=== PATIENT | male | born 1940 | race Two or more races ===

== ENCOUNTER 2025-03-20 13:49 | Inpatient (IN) | payer MEDICARE, MEDICAID ==
[~2025-03-20] VITALS: Ht 180.3 cm; Wt 88.4 kg
--- NOTE | 2025-03-20 14:29 | DVH ---
EXAM: XY CHEST PORTABLE HISTORY: weakness COMPARISON: None TECHNIQUE: Portable AP view of the chest was performed. FINDINGS: No pneumothorax or pulmonary edema. There is mild right lung base scarring and/or atelectasis with el evated right hemidiaphragm and mild right lung volume loss. The left lung is clear. The heart is not enlarged. There is colonic distention, not fully imaged here. IMPRESSION: 1. Right lung base scarring and/or atelectasis with mild elevation of the right hemidiaphragm and mil d volume loss in the right lung. 2. The left lung is clear.
[2025-03-20 15:19] LABS: Hematocrit 27.4 % (41.0-53.0); Hemoglobin 9.1 g/dL (13.5-17.5); Mean Corpuscular Hemoglobin 30.9 pg (28.0-32.0); Mean Corpuscular Volume 93.0 fL (80.0-100.0); Nucleated Red Blood Cells % 0.0 %
[2025-03-20 15:27] LABS: Sodium 143 mmol/L (136-145)
[2025-03-20 15:28] LABS: Anion Gap 12 (5-15); Carbon Dioxide 23 mmol/L (20-31)
[2025-03-20 15:29] LABS: Calcium 8.9 mg/dL (8.7-10.4); Chloride 108 mmol/L (98-107); Potassium 2.6 mmol/L (3.5-5.1)
[2025-03-20 15:34] LABS: BUN/Creatinine Ratio 9.7 (10.0-20.0); Blood Urea Nitrogen 10 mg/dL (9-23); Glucose 100 mg/dL (74-106)
--- NOTE | 2025-03-20 15:56 | DVH ---
EXAM: CT CT AB PEL WO CON-NO ORAL OR IV INDICATION: Back pain TECHNIQUE: Volumetric multidetector CT images of the abdomen and pelvis were obtained without contras t. All CT scans at this facility use dose modulation, iterative reconstruction, and/or weight based d osing when appropriate to reduce radiation dose to as low as reasonably achievable. COMPARISON: None FINDINGS: [LOWER CHEST]: Small bilateral pleural effusions. Coronary artery calcifications. small bilateral ple ural effusions. [LIVER]: Normal hepatic size without suspicious focal lesion. [GALLBLADDER AND BILIARY TREE]: No cholelithiasis. [SPLEEN]: Unremarkable. [PANCREAS]: Unremarkable. [ADRENAL GLANDS]: Unremarkable [KIDNEYS]: No hydronephrosis. No nephroureterolithiasis. 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 No imaging follow-up required. [BLADDER]: Westbrook catheter decompression [REPRODUCTIVE ORGANS]: Unremarkable. [BOWEL/MESENTERY]: Stomach is normal. Mild stool burden. Air-fluid level in the distal sigmoid colon to the rectum correlate for diarrheal illness. [ASCITES]: Absent [LYMPHADENOPATHY]: No pathologically enlarged lymph nodes by CT size criteria [VASCULATURE]: No aneurysmal dilatation. vascular calcifications. [ABDOMINAL WALL]: Unremarkable. [MUSCULOSKELETAL]: No acute fracture or aggressive focal osseous lesion. Multifocal degenerative jarrell ge of the visualized spine. IMPRESSION: 1. No CT evidence of an acute abdominal/pelvic process. 2. Air-fluid level in the distal sigmoid colon to the rectum correlate for diarrheal illness. 3. Small bilateral pleural effusions.
--- NOTE | 2025-03-20 16:46 | ED.PDOC ---
History of Present Illness HPI Comments This is an 84-year-old gentleman who comes in with chief complaint of wound to the right buttocks. The patient states that the symptoms started approximately 1-2 months ago. [facility] and was eventually sent to our emergency department's secondary to an elevated blood pressure as well as worsening decubitus ulcer. According to his , the patient has been in the bed since June and is unable to get out. The patient denies any fever or chills. 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 and symptoms No associated fever or chills Past Medical History PAST MEDICAL HISTORY: HTN Past Medical History (Other): Prediabetes, CKD stage 3 Surgical History (Other): Bilateral feet surgery Family History Family History: Reviewed,noncontributory to illness Social History Smoker: Non-Smoker Alcohol: Denies ETOH Use Drugs: Denies Drug Use Lives In: Home Constitutional: denies: chills, diaphoresis, fatigue, fever, malaise, sweats, weakness, others EENTM: denies: blurred vision, double vision, ear bleeding, ear discharge, ear drainage, ear pain, ear ringing, eye pain, eye redness, hearing loss, mouth pain, mouth swelling, nasal discharge, nose bleeding, nose congestion, nose pain, photophobia, tearing, throat pain, throat swelling, voice changes, others Respiratory: denies: cough, hemoptysis, orthopnea, SOB at rest, shortness of breath, SOB with excertion, stridor, wheezing, others Cardiovascular: denies: chest pain, dizzy spells, diaphoresis, Dyspnea on exertion, edema, irregular heart beat, left arm pain, lightheadedness, palpitations, PND, syncope, others Gastrointestinal: denies: abdomen distended, abdominal pain, blood streaked bowels, constipated, diarrhea, dysphagia, difficulty swallowing, hematemesis, melena, nausea, poor appetite, poor fluid intake, rectal bleeding, rectal pain, vomiting, others Genitourinary: reports: others (The patient has a indwelling Westbrook catheter); denies: burning, dysuria, flank pain, frequency, hematuria, incontinence, penile discharge, penile sore, pain, testicle pain, testicle swelling, urgency Neurological: denies: dizziness, fainting, headache, left sided numbness, left sided weakness, numbness, paresthesia, pre-existing deficit, right sided numbness, right sided weakness, seizure, speech problems, tingling, tremors, weakness, others Musculoskeletal: denies: back pain, gout, joint pain, joint swelling, muscle pain, muscle stiffness, neck pain, others Integumetry: reports: wounds (Wound to the right buttocks area with possible tunneling); denies: bruises, change in color, change in hair/nails, dryness, laceration, lesions, lumps, rash, others Allergic/Immunocompromised: denies: Difficulty Healing, Frequent Infections, Hives, Itching, others Hematologic/Lymphatic: denies: anemia, blood clots, easy bleeding, easy bruising, swollen glands, others Endocrine: denies: excessive hunger, excessive sweating, excessive thirst, excessive urination, flushing, intolerance to cold, intolerance to heat, unexplained weight gain, unexplained weight loss, others Psychiatric: denies: anxiety, bipolar disorder, depression, hopeless, panic disorder, schizophrenia, sleepless, suicidal, others Physical Exam General Appearance: Moderate Distress HEENT: Pale Conjuntivae (L), Pale Conjuntivae (R), Pharynx Normal, TMs Normal Neck: Full Range of Motion, Non-Tender, Normal, Normal Inspection Respiratory: Chest Non-Tender, Lungs Clear, No Accessory Muscle Use, No Respiratory Distress, Normal Breath Sounds Cardiovascular: No Edema, No JVD, No Murmur, No Gallop, Normal Peripheral Pulses, Regular Rate/Rhythm Breast Exam: Deferred Gastrointestinal: No Organomegaly, Non Tender, No Pulsatile Mass, Normal Bowel Sounds, Soft Genitalia: Other (Westbrook catheter in place) Pelvic: Deferred Rectal: Deferred Extremities: No calf tenderness, Normal capillary refill, Normal inspection, Normal range of motion, Non-tender, No pedal edema Musculoskeletal : Apperance: Normal 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 Was a procedure done?: No Differential Dx Considerations may include: Sepsis, decubitus ulcer, generalized weakness X-Ray, Labs, Meds, VS Vital Signs Date Time Temp Pulse Resp B/P (MAP) Pulse Ox O2 Delivery O2 Flow Rate FiO2 03/20/25 14:45 Room Air* 0 21 03/20/25 14:45 83 15 138/69 (92) 97 03/20/25 13:55 97.7 88 18 180/86 98 97.7 Lab Test 03/20/25 15:03 Range/Units White Blood Count 7.2 4.4-10.8 10^3/uL Red Blood Count 2.94 L 4.5-5.90 10^6/uL Hemoglobin 9.1 L 13.5-17.5 g/dL Hematocrit 27.4 L 41.0-53.0 % Mean Corpuscular Volume 93.0 80.0-100.0 fL Mean Corpuscular Hemoglobin 30.9 28.0-32.0 pg Mean Corpuscular Hemoglobin Concent 33.3 32.0-36.0 g/dL Red Cell Distribution Width 15.1 H 11.8-14.3 % Platelet Count 621 H 140-450 10^3/uL Mean Platelet Volume 7.6 6.9-10.8 fL Neutrophils (%) (Auto) 70.3 37.0-80.0 % Lymphocytes (%) (Auto) 16.9 10.0-50.0 % Monocytes (%) (Auto) 9.3 0.0-12.0 % Eosinophils (%) (Auto) 2.8 0.0-7.0 % Basophils (%) (Auto) 0.7 0.0-2.0 % Neutrophils # (Auto) 5.1 1.6-8.6 10 ^3/uL Lymphocytes # (Auto) 1.2 0.4-5.4 10 ^3/uL Monocytes # (Auto) 0.7 0-1.3 10 ^3/uL Eosinophils # (Auto) 0.2 0-0.8 10 ^3/uL Basophils # (Auto) 0.1 0-0.2 10 ^3/uL Nucleated Red Blood Cells 0.0 % Sodium Level 143 136-145 mmol/L Potassium Level 2.6 L 3.5-5.1 mmol/L Chloride Level 108 H 98-107 mmol/L Carbon Dioxide Level 23 20-31 mmol/L Anion Gap 12 5-15 Blood Urea Nitrogen 10 9-23 mg/dL Creatinine 1.03 0.700-1.30 mg/dL Glomerular Filtration Rate Calc 71 >90 mL/min BUN/Creatinine Ratio 9.7 L 10.0-20.0 Serum Glucose 100 74-106 mg/dL Lactic Acid Level 1.5 0.4-2.0 mmol/L Calcium Level 8.9 8.7-10.4 mg/dL CAT scan of the abdomen and pelvis shows: IMPRESSION: 1. No CT evidence of an acute abdominal/pelvic process. 2. Air-fluid level in the distal sigmoid colon to the rectum correlate for diarrheal illness. 3. Small bilateral pleural effusions. The patient's CBC shows anemia with a hemoglobin of 9.1 and hematocrit of 27.4 The chemistry panel is within normal limits. The lactic acid level is negative At this time, the patient will be admitted to the hospitalist Images Reviewed?: Images reviewed and evaluated by me Time of 1ST Reevaluation: 16:43 Reevaluation 1ST: Unchanged Patient Education/Counseling: Diagnosis, Treatment, Prognosis Family Education/Counseling: Diagnosis, Treatment, Prognosis SEPSIS Sepsis Screen Date sepsis recognized/suspect: Mar 20, 2025 Time Sepsis recognized/suspect: 1444 Recent Procedure: No On Antibiotic Therapy: Yes Respiratory Rate >20: No Heart Rate >90: No Temp<36 C (96.8 F) or >38.3 C: No SBP <90 or MAP <65 mmHG: No New Acute Mental Status Change: No Is the patient on CPAP, BIPAP,: No Physician Orders Chest Portable (03/20/25 13:59) Urinalysis (03/20/25 13:59) Heplock Iv (03/20/25 13:59) Sql Server Architect (03/20/25 13:59) Blood Pressure (03/20/25 13:59) Pulse Oximetry (03/20/25 13:59) Electrocardigram (03/20/25 13:59) Sodium Chloride 0.9% (03/20/25 14:00) Blood Culture (03/20/25 13:59) * Wound Consult (03/20/25 ) Wound Culture W/ Gs (03/20/25 13:59) Ct Ab Pel Wo Con-No Oral Or Iv (03/20/25 15:07) Vital Signs Date Time Temp Pulse Resp B/P (MAP) Pulse Ox O2 Delivery O2 Flow Rate FiO2 03/20/25 14:45 Room Air* 0 21 03/20/25 14:45 83 15 138/69 (92) 97 03/20/25 13:55 97.7 88 18 180/86 98 97.7 Laboratory Tests Test 03/20/25 15:03 Lactic Acid Level 1.5 mmol/L (0.4-2.0) White Blood Count 7.2 10^3/uL (4.4-10.8) Departure 1 Departure Time of Disposition: 16:44 Impression: Primary Impression: Decubitus ulcer Qualified Codes: L89.154 - Pressure ulcer of sacral region, stage 4 Additional Impressions: Generalized weakness Failure to thrive in adult Disposition: 09 ADMITTED INPATIENT Admit to: Tele Condition: Fair Critical Care Note Critical Care Time?: No Stability Stability form required: Yes Unstable for transfer: ED Physician Assesment (Clinical assesment) Heart Score Heart Score: Heart Score Response (Comments) Value History N/A 0 EKG N/A 0 Age N/A 0 Risk Factors N/A 0 Troponin N/A 0 Total 0 JAMIL OLIVER MD Mar 20, 2025 16:46
[2025-03-20] MEDS: SODIUM CHLORIDE 0.9% 1,000 ML IV ONE (17:25)
[2025-03-20] MEDS: POTASSIUM CHL 20MEQ/100ML 100 ML IV ONE (18:04)
[2025-03-20] MEDS ORDERED: ONDANSETRON HCL 4 MG/2 ML VIAL IV PRN (18:45)
[2025-03-20] MEDS ORDERED: MORPHINE SULFATE 4 MG/ML SYR/VIAL IV PRN ×2 (18:45)
[2025-03-20] MEDS ORDERED: NITROGLYCERIN 0.4 MG SL TAB SL PRN (18:45)
[2025-03-20] MEDS ORDERED: DOCUSATE SOD 100 MG CAP PO PRN (18:45)
[2025-03-20] MEDS ORDERED: ACETAMINOPHEN 325 MG TAB PO PRN (18:45)
[2025-03-20] MEDS ORDERED: VANCOMYCIN PER PHARMACY 0 MG IV SCH (18:45)
[2025-03-20 19:40] VITALS: PULSE 110; RESP 20; O2SAT 98
[2025-03-20] MEDS: POTASSIUM EFFERVESENT TAB 25 MEQ PO ONE (22:00)
[2025-03-20] MEDS: SODIUM CHLORIDE 0.9% 1,000 ML IV SCH (22:00)
[2025-03-20] MEDS: PIPERACILLIN-TAZOB 3.375GM 100 ML IV ONE (22:01)
[2025-03-20 22:15] LABS: Anion Gap 12 (5-15); Calcium 8.9 mg/dL (8.7-10.4); Carbon Dioxide 24 mmol/L (20-31)
[2025-03-20 22:17] LABS: Chloride 109 mmol/L (98-107); Potassium 3.0 mmol/L (3.5-5.1); Sodium 145 mmol/L (136-145)
[2025-03-20 22:20] LABS: BUN/Creatinine Ratio 14.7 (10.0-20.0); Blood Urea Nitrogen 16 mg/dL (9-23); Glucose 100 mg/dL (74-106)
[2025-03-20] MEDS: ASCORBIC ACID 500 MG TAB PO SCH (23:41)
[2025-03-20] MEDS: VANCOMYCIN 1.5GM/250ML IV ONE (23:41)
[2025-03-20] MEDS: POTASSIUM CHL 20 Meq TABLET PO ONE (23:41)
[2025-03-20 23:53] VITALS: BP 158/68; PULSE 113; RESP 16; TEMP 98; O2SAT 95
[2025-03-21] VITALS (9 sets, daily range): BP systolic 108–158; BP diastolic 59–115; PULSE 68–119; RESP 16–18; TEMP 97.8–98; O2SAT 93–100
--- NOTE | 2025-03-21 01:01 | DVHHP2 ---
Admitting Diagnosis: Decubitus Ulcer, Failure to thrive History of Present Illness History Source: Patient Exam Limitations: No limitations HPI Mr. Seema Morris is an 84-year-old gentleman who presents with chief complaint of a wound to the right buttocks. The patient states that the symptoms started approximately 1-2 months ago. [facility] was eventually sent to our emergency department's secondary to an elevated blood pressure as well as worsening decubitus ulcer. According to his , the patient has been in the bed since June and is unable to get out of bed. Patient reports generalized weakness. Patient admitted for further evaluation and treatment. Past Medical History Cardiac: HTN Pulmonary: No pertinent Hx Central Nervous System: No pertinent Hx GI: No pertinent Hx Hemotology/Oncology: No pertinent Hx Hepatobiliary: No pertinent Hx Psychiatric: No pertinent Hx Musculoskeletal: No pertinent Hx Rheumotologic: No pertinent Hx Infectious Disease: No peritnent Hx ENT: No pertinent Hx Renal/: CKD (stage III) Endocrine: No pertinent Hx Dermatology: No pertinent Hx Smoker: No Hx (Negative) Alocohol: None Drugs: None Lives with: With family Domestic Violence: Neg Review of Systems Constitutional: Weakness (failure to thrive) Ears, Nose, & Throat: No symptom reported Eyes: No symptom reported Pulmonary/Respiratory: No symptom reported Cardiovascular: No symptom reported Gastrointestinal: No symptom reported Genitourinary: No symptom reported Musculoskeletal: No symptom reported Skin: Other (decubitus ulcer ) Psychiatric: No symptom reported Endocrine: No symptom reported Hemotologic/Lymphatic: No symptom reported H&P Exam Vital Signs Vital Signs Date Time Temp Pulse Resp B/P (MAP) Pulse Ox O2 Delivery O2 Flow Rate FiO2 03/20/25 23:53 98.0 113 16 158/68 (98) 95 98.0 03/20/25 19:40 Room Air* 0 21 General Appeara: Well developed, Well nourished, Normal Appearance Head Exam: Normal inspection Neck Exam: Normal inspection, Non-tender, Normal alignment Eye Exam: bilateral eye Normal inspection, bilateral eye PERRL, bilateral eye EOMI Ear Exam: bilateral ear Auricle normal Nasal Exam: Normal inspection Mouth: Normal Inspection Pulmonary/Respiratory: Normal inspection, Normal breath sounds, Chest non- tender, Lungs clear Cardiovascular/Chest: Normal inspection, Regular rate, Normal Rhythm Peripheral Pulses: 2+ dorsalis pedis (R), 2+ dorsalis pedis (L), 2+ Radial (R), 2+ Radial (L) Abdominal Exam: Normal bowel sounds, Soft, No tenderness Rectal Exam: Other (sacral decubitus ulcer stage IV) Back Exam: Normal 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 hearing, Normal speech, PERRL Neuro/Mental St: Alert, Oriented Eye contact/ Speech: Cooperative, Good eye contact, Normal speech Thoughts/Psych: Normal thought pattern Skin Exam: Other (sacral decubitus ulcer stage IV) SEPSIS Sepsis Screen Date sepsis recognized/suspect: Mar 20, 2025 Time Sepsis recognized/suspect: 1939 Recent Procedure: No On Antibiotic Therapy: Yes Respiratory Rate >20: No Heart Rate >90: No Temp<36 C (96.8 F) or >38.3 C: No SBP <90 or MAP <65 mmHG: No New Acute Mental Status Change: No Is the patient on CPAP, BIPAP,: No Physician Orders Admit (03/20/25 18:40) Code Status (03/20/25 18:40) 2 Gm Sodium Diet (03/21/25 Breakfast) Sodium Chloride 0.9% (03/20/25 18:45) Hydrocodone-Acet 5/325mg Tab ([place] 5/32 (03/20/25 18:45) Ondansetron Hcl (Zofran) (03/20/25 18:45) Docusate Sodium Capsule (Colace Capsule) (03/20/25 18:45) Enoxaparin Sodium (Lovenox) (03/21/25 10:00) Zinc Sulfate (03/21/25 10:00) Ascorbic Acid Tablet (Vitamin C Tablet) (03/20/25 22:00) Multiple Vitamin Tablet (Mvi Tab) (03/21/25 10:00) Fall Risk Precautions In Place QSHIFT (03/20/25 18:40) Complete Blood Count (03/21/25 04:00) Comprehensive Metabolic Panel (03/21/25 04:00) Pt Request For Service (03/20/25 18:40) Condition: Fair (03/20/25 18:40) Acetaminophen Tablet (Tylenol Tablet) (03/20/25 18:45) Nitroglycerin Sublingual (Ntrostat Subli (03/20/25 18:45) Stat Ekg For Chest Pain (03/20/25 18:40) Notify Md Of Changes From Base (03/20/25 18:40) Concrete Pipe Machine Operator For 24 Hours (03/20/25 18:40) Emergency Dysrhythmia Protocol (03/20/25 18:40) Rhythm Strips Once Every Shift (03/20/25 18:40) Oxygen By Nasal Cannula (03/20/25 18:40) Vancomycin Per Pharmacy (03/20/25 18:45) * Infectious [place]- Dr. Benavidez (03/20/25 18:40) * Surgical Consult (03/20/25 ) Mri Abd Pelvis W/O Cont (03/20/25 18:40) Morphine Sulfate Injection (03/20/25 18:45) Morphine Sulfate Injection (03/20/25 18:45) Piperacillin-Tazob 3.375gm (Zosyn 3.375g (03/21/25 04:00) Vital Signs Date Time Temp Pulse Resp B/P (MAP) Pulse Ox O2 Delivery O2 Flow Rate FiO2 03/20/25 23:53 98.0 113 16 158/68 (98) 95 98.0 03/20/25 22:00 98.2 112 19 121/77 (92) 98 98.2 03/20/25 20:00 98.2 110 15 144/82 (102) 99 98.2 03/20/25 19:40 110 20 98 Room Air* 0 21 03/20/25 18:00 92 21 122/68 (86) 100 Laboratory Tests Test 03/20/25 15:03 Lactic Acid Level 1.5 mmol/L (0.4-2.0) White Blood Count 7.2 10^3/uL (4.4-10.8) Medications Medications Dose Ordered Sig/Teena Route Start Time Stop Time Status Last Admin Dose Admin Ascorbic Acid 500 mg BID PO 03/20/25 22:00 03/20/25 23:41 500 MG Piperacillin Sod/ Tazobactam Sod 100 ml @ 100 mls/hr ONCE ONCE IV 03/20/25 20:00 03/20/25 20:59 DC 03/20/25 22:01 100 MLS/HR Potassium Bicarbonate 50 meq ONCE ONCE PO 03/20/25 19:00 03/20/25 19:17 DC 03/20/25 22:00 50 MEQ Potassium Chloride 40 meq ONCE ONCE PO 03/20/25 22:45 03/20/25 22:50 DC 03/20/25 23:41 40 MEQ Potassium Chloride 100 ml @ 50 mls/hr ONCE ONCE IV 03/20/25 17:45 03/20/25 19:44 DC 03/20/25 18:04 50 MLS/HR Sodium Chloride 1,000 ml @ 120 mls/hr Q8H20M IV 03/20/25 18:45 03/20/25 22:00 120 MLS/HR Sodium Chloride 1,000 ml @ 150 mls/hr Q6H40M ONCE IV 03/20/25 14:00 03/20/25 20:39 DC 03/20/25 17:25 150 MLS/HR Vancomycin HCl 250 ml @ 166.667 mls/hr ONCE ONCE IV 03/20/25 21:45 03/20/25 23:14 DC 03/20/25 23:41 166.667 MLS/HR Wounds sacral decubitus ulcer stage IV Labs/Xrays Labs Test 03/20/25 21:52 03/20/25 15:03 Range/Units Sodium Level 145 136-145 mmol/L Potassium Level 3.0 L 3.5-5.1 mmol/L Chloride Level 109 H 98-107 mmol/L Carbon Dioxide Level 24 20-31 mmol/L Anion Gap 12 5-15 Blood Urea Nitrogen 16 9-23 mg/dL Creatinine 1.09 0.700-1.30 mg/dL Glomerular Filtration Rate Calc 67 >90 mL/min BUN/Creatinine Ratio 14.7 10.0-20.0 Serum Glucose 100 74-106 mg/dL Calcium Level 8.9 8.7-10.4 mg/dL White Blood Count 7.2 4.4-10.8 10^3/uL Red Blood Count 2.94 L 4.5-5.90 10^6/uL Hemoglobin 9.1 L 13.5-17.5 g/dL Hematocrit 27.4 L 41.0-53.0 % Mean Corpuscular Volume 93.0 80.0-100.0 fL Mean Corpuscular Hemoglobin 30.9 28.0-32.0 pg Mean Corpuscular Hemoglobin Concent 33.3 32.0-36.0 g/dL Red Cell Distribution Width 15.1 H 11.8-14.3 % Platelet Count 621 H 140-450 10^3/uL Mean Platelet Volume 7.6 6.9-10.8 fL Neutrophils (%) (Auto) 70.3 37.0-80.0 % Lymphocytes (%) (Auto) 16.9 10.0-50.0 % Monocytes (%) (Auto) 9.3 0.0-12.0 % Eosinophils (%) (Auto) 2.8 0.0-7.0 % Basophils (%) (Auto) 0.7 0.0-2.0 % Neutrophils # (Auto) 5.1 1.6-8.6 10 ^3/uL Lymphocytes # (Auto) 1.2 0.4-5.4 10 ^3/uL Monocytes # (Auto) 0.7 0-1.3 10 ^3/uL Eosinophils # (Auto) 0.2 0-0.8 10 ^3/uL Basophils # (Auto) 0.1 0-0.2 10 ^3/uL Nucleated Red Blood Cells 0.0 % Lactic Acid Level 1.5 0.4-2.0 mmol/L Assessment/Plan Problem List: (1) Decubitus ulcer (2) Failure to thrive in adult (3) Generalized weakness Plan This is an 84 yo male with known history of hypertension, CKD stage III who presents to the hospital with worsening decubitus ulcer, generalized weakness. Patient found to have 1. Sacral decubitus stage IV ulcer 2. Failure to thrive 3. Generalized weakness 4. Acute Hypokalemia 5. Hypertension 6. CKD stage III Plan Admit Med Surgical unit Infectious disease consultation, IV antibiotics, MRI abdominal pelvis wo contrast General surgeon consultation Wound consult Monitor electrolytes replenish as needed Discussed all above with patient who verbalizes agreement and understanding of care plan. All questions were answered. Discussed with supervising/admitting MD. Plan discussed with: Patient, Other Code Visit Code Visit Total Time (mins): 45 KENNEDY CHISHOLM Mar 21, 2025 01:01 MEGA JUAREZ MD Mar 21, 2025 17:56
[2025-03-21] MEDS: PIPERACILLIN-TAZOB 3.375GM 100 ML IV SCH (06:17)
[2025-03-21] MEDS: MULTIPLE VITAMIN TAB PO SCH (08:28)
[2025-03-21] MEDS: ZINC SULFATE 220mg CAP or TAB PO SCH (08:28)
[2025-03-21] MEDS: ENOXAPARIN SOD 40 MG/0.4 ML SYRINGE SC SCH (08:29)
--- NOTE | 2025-03-21 10:41 | DVHINCON2 ---
Date of service: Mar 21, [address] Valiente Reason for Consultation Decubitus ulcer History of Present Illness A 84 yo male who is bedbound for few months has developed a decubitus ulcer since last 2 months which is progressively getting worse Patient admitted for elevated blood pressure and worsening wound ID is consulted to help with management He is afebrile, no elevated wbc count at bedside. He is confused, she provided history she reports she is wanting it to get him debrided Past Medical History HTN CKD stage III failure to thrive Allergies: Coded Allergies: Lisinopril (Verified Allergy, Unknown, 03/20/25) Current Medications Current Medications Medications (Trade) Dose Ordered Sig/Teena Route PRN Reason Start Time Stop Time Status Last Admin Sodium Chloride 1,000 ml @ 120 mls/hr Q8H20M IV 03/20/25 18:45 03/20/25 22:00 Acetaminophen/ Hydrocodone Bitart ([place] 5/325MG Tab) 1 tab Q4HP PRN PO MODERATE PAIN (4-6 PAIN SCALE) 03/20/25 18:45 Ondansetron HCl (Zofran) 4 mg Q4HP PRN IV NAUSEA / VOMITING 03/20/25 18:45 Docusate Sodium (Colace Capsule) 100 mg BIDPRN PRN PO FOR CONSTIPATION 03/20/25 18:45 Enoxaparin Sodium (Lovenox) 40 mg DAILY SC 03/21/25 10:00 03/21/25 08:29 Zinc Sulfate 220 mg DAILY PO 03/21/25 10:00 03/21/25 08:28 Ascorbic Acid (Vitamin C Tablet) 500 mg BID PO 03/20/25 22:00 03/21/25 08:28 Multivitamins (Mvi Tab) 1 tab DAILY PO 03/21/25 10:00 03/21/25 08:28 Acetaminophen (Tylenol Tablet) 650 mg Q6HP PRN PO PAIN SCALE 1-3 OR TEMP>100.4 03/20/25 18:45 Morphine Sulfate 2 mg Q4HPRN PRN IV SEVERE PAIN (7-10 PAIN SCALE) 03/20/25 18:45 Nitroglycerin (Ntrostat Sublingual) 0.4 mg Q5MINP PRN SL FOR CHEST PAIN 03/20/25 18:45 Morphine Sulfate 2 mg Q30M PRN IV FOR CHEST PAIN 03/20/25 18:45 Piperacillin Sod/ Tazobactam Sod 100 ml @ 25 mls/hr Q8HR@0400,1200,2000 IV 03/21/25 04:00 03/21/25 06:17 Vancomycin HCl 0 ml @ 0 mls/hr UD IV 03/20/25 18:45 Vancomycin HCl 250 ml @ 250 mls/hr Q16H IV 03/21/25 16:00 Review of Systems he is confused, unable to obtain Vital Signs Vital Signs Date Time Temp Pulse Resp B/P (MAP) Pulse Ox O2 Delivery O2 Flow Rate FiO2 03/21/25 08:00 68 16 96 Room Air* 0 21 03/21/25 05:00 97.9 108/59 (75) 97.9 Physical Exam General alert and confused, . thin appearing HEENT: Atraumatic Neck: No swelling Lungs: Equal air entry and clear to auscultation Cardiovascular: S2 heard no murmur Abdomen: Soft nontender, no organomegaly, nondistended Neuro: Alert and oriented, generalized weakness skin: stage iv decub ulcer a small up to 1-2 cm in size surrounding skin is dark and there is scarring Labs/Diagnostic Data Labs Test 03/20/25 21:52 03/20/25 15:03 Range/Units Sodium Level 145 136-145 mmol/L Potassium Level 3.0 L 3.5-5.1 mmol/L Chloride Level 109 H 98-107 mmol/L Carbon Dioxide Level 24 20-31 mmol/L Anion Gap 12 5-15 Blood Urea Nitrogen 16 9-23 mg/dL Creatinine 1.09 0.700-1.30 mg/dL Glomerular Filtration Rate Calc 67 >90 mL/min BUN/Creatinine Ratio 14.7 10.0-20.0 Serum Glucose 100 74-106 mg/dL Calcium Level 8.9 8.7-10.4 mg/dL White Blood Count 7.2 4.4-10.8 10^3/uL Red Blood Count 2.94 L 4.5-5.90 10^6/uL Hemoglobin 9.1 L 13.5-17.5 g/dL Hematocrit 27.4 L 41.0-53.0 % Mean Corpuscular Volume 93.0 80.0-100.0 fL Mean Corpuscular Hemoglobin 30.9 28.0-32.0 pg Mean Corpuscular Hemoglobin Concent 33.3 32.0-36.0 g/dL Red Cell Distribution Width 15.1 H 11.8-14.3 % Platelet Count 621 H 140-450 10^3/uL Mean Platelet Volume 7.6 6.9-10.8 fL Neutrophils (%) (Auto) 70.3 37.0-80.0 % Lymphocytes (%) (Auto) 16.9 10.0-50.0 % Monocytes (%) (Auto) 9.3 0.0-12.0 % Eosinophils (%) (Auto) 2.8 0.0-7.0 % Basophils (%) (Auto) 0.7 0.0-2.0 % Neutrophils # (Auto) 5.1 1.6-8.6 10 ^3/uL Lymphocytes # (Auto) 1.2 0.4-5.4 10 ^3/uL Monocytes # (Auto) 0.7 0-1.3 10 ^3/uL Eosinophils # (Auto) 0.2 0-0.8 10 ^3/uL Basophils # (Auto) 0.1 0-0.2 10 ^3/uL Nucleated Red Blood Cells 0.0 % Lactic Acid Level 1.5 0.4-2.0 mmol/L Assessment A 84 yo male with confusion stage iv decub ulcer failure to thrive bed bound CKD stage III recommendations Clinically, he is afebrile, normal wbc and has no systemic signs of infection labs reviewed currently on IV Vancomycin and zosyn for now, monitor renal function fluids continue wound care CT abdomen and pelvis reviewed personally, no acute abnormality wound care consult nutrition consult surgery consult ; a small wound may need debridement today, he is getting MRI of hip prognosis gaurded due to bed bound / failure to thrive discussed with patient's , he needs to see wound center as outpatient for continued care. total time 80 minutes spent during the encounter thank you for consult Plan discussed with: Spouse, Other MARITA URENA MD Mar 21, 2025 10:35
[2025-03-21 14:46] LABS: Hematocrit 30.6 % (41.0-53.0); Hemoglobin 10.1 g/dL (13.5-17.5); Mean Corpuscular Hemoglobin 31.1 pg (28.0-32.0); Mean Corpuscular Volume 93.8 fL (80.0-100.0); Nucleated Red Blood Cells % 0.0 %
[2025-03-21 15:03] LABS: Alanine Aminotransferase 18 U/L (7-40); Albumin 3.7 g/dL (3.2-4.8); Alkaline Phosphatase 78 U/L (46-116); Anion Gap 13 (5-15); BUN/Creatinine Ratio 9.9 (10.0-20.0); Blood Urea Nitrogen 11 mg/dL (9-23); Calcium 9.1 mg/dL (8.7-10.4); Carbon Dioxide 21 mmol/L (20-31); Sodium 142 mmol/L (136-145); Total Protein 7.2 g/dL (5.7-8.2)
[2025-03-21 15:04] LABS: Bilirubin, Total 0.3 mg/dL (0.2-1.0)
[2025-03-21 15:05] LABS: Chloride 108 mmol/L (98-107); Glucose 134 mg/dL (74-106); Potassium 3.2 mmol/L (3.5-5.1)
--- NOTE | 2025-03-21 16:07 | DVH ---
MRI Abdomen, Pre and Post Contrast Exam Date: 03/21/2025 02:49 PM Comparison: CT CT AB PEL WO CON-NO ORAL OR IV on DOS: 03/20/25 History: Pain. Technique: Multiplaner multi sequence MR imaging of the abdomen and pelvis without intravenous contra st. Findings: Liver: The liver is normal in size without focal lesions. Normal liver contour. Spleen: Unremarkable. Pancreas: The pancreas is normal in appearance without focal lesions. Gallbladder and ducts: Sludge and a few tiny stones in the gallbladder. No wall thickening or distens ion. No inflammatory changes. Gallbladder is normal in appearance. The cystic duct, right and left h epatic ducts, common hepatic duct, and common bile ducts are unremarkable. The pancreatic duct is w ithin normal limits. Adrenal glands: Unremarkable. Kidneys: Normal enhancement without suspicious lesions or hydronephrosis. Few bilateral renal cortica l cysts. Westbrook catheter in situ. Visualized bowel: Marked distention of the colon with sigmoid colon measuring up to 10.0 cm. Vasculature: Unremarkable. Lymphadenopathy: No evidence for lymphadenopathy. Ascites: Absent. Musculoskeletal: Bone marrow signal is nornal. Mild diffuse intramuscular edema. Generalized soft tis becki edema. Lung bases: Trace bilateral effusions. IMPRESSION: Air filled distention of the colon likely representing an ileus. Diffuse soft tissue and intramuscular edema likely related to the patient's overall fluid status. Ple ase correlate with any new onset weakness to exclude a myositis.
[2025-03-22] VITALS (7 sets, daily range): BP systolic 116–157; BP diastolic 66–89; PULSE 97–105; RESP 16–19; TEMP 97.5–99.5; O2SAT 92–100
[2025-03-22] MEDS: VANCOMYCIN 1GM/250ML KIT 250 ML IV SCH (09:02)
[2025-03-22 10:02] LABS: Alkaline Phosphatase 69 U/L (46-116); Anion Gap 19 (5-15); Calcium 8.8 mg/dL (8.7-10.4); Total Protein 6.8 g/dL (5.7-8.2)
[2025-03-22] MEDS: POTASSIUM CHL 20MEQ/100ML 100 ML IV SCH (10:02)
[2025-03-22 10:05] LABS: BUN/Creatinine Ratio 11.9 (10.0-20.0)
[2025-03-22 10:10] LABS: Alanine Aminotransferase 22 U/L (7-40); Bilirubin, Total 0.2 mg/dL (0.2-1.0); Blood Urea Nitrogen 13 mg/dL (9-23); Carbon Dioxide 15 mmol/L (20-31); Chloride 113 mmol/L (98-107); Glucose 117 mg/dL (74-106); Potassium 4.9 mmol/L (3.5-5.1); Sodium 147 mmol/L (136-145)
[2025-03-22 10:55] LABS: Hematocrit 30.6 % (41.0-53.0); Hemoglobin 10.2 g/dL (13.5-17.5); Mean Corpuscular Hemoglobin 31.6 pg (28.0-32.0); Mean Corpuscular Volume 94.7 fL (80.0-100.0); Nucleated Red Blood Cells % 0.0 %
--- NOTE | 2025-03-22 11:31 | DVHPN2 ---
Progress Note - Dictate Date Seen: Mar 22, 2025 Medical Necessity Reason Pt with a Central, PICC or Fol: No Subjective Patient stable, tolerated wound care well. vital signs Vital Sign Date Time Temp Pulse Resp B/P (MAP) Pulse Ox O2 Delivery O2 Flow Rate FiO2 03/22/25 05:00 98.2 98 17 117/89 (98) 98 98.2 03/21/25 20:00 Room Air* 0 21 Total Intake and Output 03/21/25 03/21/25 03/21/25 02:30 10:30 18:30 Intake Total 60 ml 255 ml Output Total 1 ml Balance 59 ml 255 ml medications Current Medications Medications Dose Ordered Sig/Teena Route Start Time Stop Time Status Last Admin Dose Admin Sodium Chloride 1,000 ml @ 120 mls/hr Q8H20M IV 03/20/25 18:45 03/22/25 04:06 120 MLS/HR Acetaminophen/ Hydrocodone Bitart 1 tab Q4HP PRN PO 03/20/25 18:45 Ondansetron HCl 4 mg Q4HP PRN IV 03/20/25 18:45 Docusate Sodium 100 mg BIDPRN PRN PO 03/20/25 18:45 Enoxaparin Sodium 40 mg DAILY SC 03/21/25 10:00 03/22/25 09:02 40 MG Zinc Sulfate 220 mg DAILY PO 03/21/25 10:00 03/22/25 09:02 220 MG Ascorbic Acid 500 mg BID PO 03/20/25 22:00 03/22/25 09:02 500 MG Multivitamins 1 tab DAILY PO 03/21/25 10:00 03/22/25 09:02 1 TAB Acetaminophen 650 mg Q6HP PRN PO 03/20/25 18:45 Morphine Sulfate 2 mg Q4HPRN PRN IV 03/20/25 18:45 Nitroglycerin 0.4 mg Q5MINP PRN SL 03/20/25 18:45 Morphine Sulfate 2 mg Q30M PRN IV 03/20/25 18:45 Piperacillin Sod/ Tazobactam Sod 100 ml @ 25 mls/hr Q8HR@0400,1200,2000 IV 03/21/25 04:00 03/22/25 04:06 25 MLS/HR Vancomycin HCl 0 ml @ 0 mls/hr UD IV 03/20/25 18:45 Vancomycin HCl 250 ml @ 250 mls/hr Q16H IV 03/21/25 16:00 03/22/25 09:02 250 MLS/HR Potassium Chloride 100 ml @ 50 mls/hr Q2H IV 03/22/25 10:00 03/22/25 13:59 03/22/25 10:02 50 MLS/HR objective General alert and confused, . thin appearing HEENT: Atraumatic Neck: No swelling Lungs: Equal air entry and clear to auscultation Cardiovascular: S2 heard no murmur Abdomen: Soft nontender, no organomegaly, nondistended Neuro: Alert and oriented, generalized weakness skin: stage iv decub ulcer a small up to 1-2 cm in size surrounding skin is dark and there is scarring laboratory and microbiology Laboratory Tests 03/22/25 10:25 03/22/25 06:20 Test 03/22/25 06:20 Range/Units Serum Glucose 117 H 74-106 mg/dL Assessment/Plan A 84 yo male with confusion stage iv decub ulcer failure to thrive bed bound CKD stage III recommendations Clinically, he is afebrile, normal wbc and has no systemic signs of infection labs reviewed currently on IV Vancomycin and zosyn for now, monitor renal function fluids continue wound care CT abdomen and pelvis reviewed personally, no acute abnormality wound care consult nutrition consult surgery consult ; a small wound may need debridement MRI of hip is pending prognosis gaurded due to bed bound / failure to thrive He needs to see wound center as outpatient for continued care. total time 50 minutes spent during the encounter plan discussed with Dr Valiente Plan discussed with: MARITA Watson MD Mar 22, 2025 11:31
[2025-03-22 11:38] LABS: Albumin 3.6 g/dL (3.2-4.8)
--- NOTE | 2025-03-22 14:22 | DVHINCON2 ---
Consultation - Surgical Date Seen: Mar 22, 2025 Referring Physician Reason for Consultation Sacral decubitus ulcer History of Present Illness History of Present Illness Mr. oMrris is a 84-year-old male who presented to the ED and was admitted to the hospital due to apparently worsening sacral decubitus ulcer. Patient states that has been present for the last 2 months and his takes care of it at home. States that he has been bed-bound for the last 4 months after suffering a fall. Denies fevers, chills, nausea, vomiting, changes in urinary or stooling habits. Allergies and medications Allergies: Coded Allergies: Lisinopril (Verified Allergy, Unknown, 03/20/25) Review of systems Review of Systems: Deferred Examination Vital signs Vital Signs Date Time Temp Pulse Resp B/P (MAP) Pulse Ox O2 Delivery O2 Flow Rate FiO2 03/22/25 08:00 98 18 98 Room Air* 0 21 03/22/25 05:00 98.2 117/89 (98) 98.2 Medications Current Medications Medications (Trade) Dose Ordered Sig/Teena Route PRN Reason Start Time Stop Time Status Last Admin Vancomycin HCl 250 ml @ 250 mls/hr Q16H IV 03/21/25 16:00 03/22/25 09:02 Potassium Chloride 100 ml @ 50 mls/hr Q2H IV 03/22/25 10:00 03/22/25 13:59 DC 03/22/25 10:02 Laboratory Labs Test 03/22/25 12:50 03/22/25 10:25 03/22/25 06:20 03/20/25 15:03 Range/Units Potassium Level 3.4 L 3.5-5.1 mmol/L White Blood Count 9.8 4.4-10.8 10^3/uL Red Blood Count 3.23 L 4.5-5.90 10^6/uL Hemoglobin 10.2 L 13.5-17.5 g/dL Hematocrit 30.6 L 41.0-53.0 % Mean Corpuscular Volume 94.7 80.0-100.0 fL Mean Corpuscular Hemoglobin 31.6 28.0-32.0 pg Mean Corpuscular Hemoglobin Concent 33.3 32.0-36.0 g/dL Red Cell Distribution Width 15.1 H 11.8-14.3 % Platelet Count 808 *H 140-450 10^3/uL Mean Platelet Volume 7.6 6.9-10.8 fL Neutrophils (%) (Auto) 77.1 37.0-80.0 % Lymphocytes (%) (Auto) 11.8 10.0-50.0 % Monocytes (%) (Auto) 8.7 0.0-12.0 % Eosinophils (%) (Auto) 1.9 0.0-7.0 % Basophils (%) (Auto) 0.5 0.0-2.0 % Neutrophils # (Auto) 7.6 1.6-8.6 10 ^3/uL Lymphocytes # (Auto) 1.2 0.4-5.4 10 ^3/uL Monocytes # (Auto) 0.9 0-1.3 10 ^3/uL Eosinophils # (Auto) 0.2 0-0.8 10 ^3/uL Basophils # (Auto) 0 0-0.2 10 ^3/uL Nucleated Red Blood Cells 0.0 % Platelet Estimate Markedly increased Sodium Level 147 #H 136-145 mmol/L Chloride Level 113 H 98-107 mmol/L Carbon Dioxide Level 15 L 20-31 mmol/L Anion Gap 19 H 5-15 Blood Urea Nitrogen 13 9-23 mg/dL Creatinine 1.09 0.700-1.30 mg/dL Glomerular Filtration Rate Calc 67 >90 mL/min BUN/Creatinine Ratio 11.9 10.0-20.0 Serum Glucose 117 H 74-106 mg/dL Calcium Level 8.8 8.7-10.4 mg/dL Total Bilirubin 0.2 0.2-1.0 mg/dL Aspartate Amino Transferase (AST) 81 H 13-40 U/L Alanine Aminotransferase (ALT) 22 7-40 U/L Alkaline Phosphatase 69 46-116 U/L Total Protein 6.8 5.7-8.2 g/dL Albumin 3.6 3.2-4.8 g/dL Lactic Acid Level 1.5 0.4-2.0 mmol/L Microbiology Date/Time Source Procedure Growth Status 03/20/25 15:03 Blood Blood Culture - Preliminary NO GROWTH AFTER 24 HOURS OF INCUBATION. Resulted Examination: SKIN:Abnormal (Sacral decubitus ulcer approximately 1-1.5 cm in diameter and down to bone, fibrinous tissue at base, erythema and ecchymosis on the borders, no pus, no drainage, tender) Problem List/Assessment/Plan Problems: (1) Decubitus ulcer Assessment and Plan Mr. Morris is a 84-year-old male who presented and was admitted to the hospital due to sacral decubitus ulcer. Ulcer is stage IV and measures approximately 1- 1.5 cm in diameter. Has some fibrinous tissue at the base. No active infection, no pus, no drainage, no crepitus, no fluctuance. Patient does not require surgical debridement of the wound at this time, continue with local care, recommend Santyl at the base. 1. No surgical debridement required 2. Daily packing changes with quarter-inch iodoform gauze, placed Santyl at the base 3. Covered with a Medihoney and foam dressing 4. Frequent offloading 5. I will sign off please call with any questions or concerns Plan discussed with Plan discussed with: Patient Visit Coding Surgery Date of Service if different f: Mar 22, 2025 Billing Provider: GIO RAMIRES MD Surgery Visit Codes: [id number] - INP CONSULT <110 MIN GIO RAMIRES MD Mar 22, 2025 14:22
--- NOTE | 2025-03-22 16:08 | DVHPN2 ---
Subjective Patient denies any complaints we are waiting for the general surgery to evaluate the patient for any wound debridement. 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 Medications Current Medications Medications Dose Ordered Sig/Teena Route Start Time Stop Time Status Last Admin Dose Admin Sodium Chloride 1,000 ml @ 120 mls/hr Q8H20M IV 03/20/25 18:45 03/22/25 04:06 120 MLS/HR Acetaminophen/ Hydrocodone Bitart 1 tab Q4HP PRN PO 03/20/25 18:45 Ondansetron HCl 4 mg Q4HP PRN IV 03/20/25 18:45 Docusate Sodium 100 mg BIDPRN PRN PO 03/20/25 18:45 Enoxaparin Sodium 40 mg DAILY SC 03/21/25 10:00 03/22/25 09:02 40 MG Zinc Sulfate 220 mg DAILY PO 03/21/25 10:00 03/22/25 09:02 220 MG Ascorbic Acid 500 mg BID PO 03/20/25 22:00 03/22/25 09:02 500 MG Multivitamins 1 tab DAILY PO 03/21/25 10:00 03/22/25 09:02 1 TAB Acetaminophen 650 mg Q6HP PRN PO 03/20/25 18:45 Morphine Sulfate 2 mg Q4HPRN PRN IV 03/20/25 18:45 Nitroglycerin 0.4 mg Q5MINP PRN SL 03/20/25 18:45 Morphine Sulfate 2 mg Q30M PRN IV 03/20/25 18:45 Piperacillin Sod/ Tazobactam Sod 100 ml @ 25 mls/hr Q8HR@0400,1200,2000 IV 03/21/25 04:00 03/22/25 11:52 25 MLS/HR Vancomycin HCl 0 ml @ 0 mls/hr UD IV 03/20/25 18:45 Vancomycin HCl 250 ml @ 250 mls/hr Q16H IV 03/21/25 16:00 03/22/25 09:02 250 MLS/HR Laboratory Results Laboratory Tests 03/22/25 06:20 03/22/25 10:25 03/22/25 12:50 Chemistry Test 03/22/25 06:20 Albumin 3.6 g/dL (3.2-4.8) Calcium Level 8.8 mg/dL (8.7-10.4) Total Protein 6.8 g/dL (5.7-8.2) LFT Test 03/22/25 06:20 Alanine Aminotransferase (ALT) 22 U/L (7-40) Alkaline Phosphatase 69 U/L (46-116) Aspartate Amino Transferase (AST) 81 U/L (13-40) H Total Bilirubin 0.2 mg/dL (0.2-1.0) Microbiology Microbiology Date/Time Source Procedure Growth Status 03/20/25 15:03 Blood Blood Culture - Preliminary NO GROWTH AFTER 48 HOURS OF INCUBATION. Resulted Assessment/Plan Assessment/Plan 84-year-old male with a known history of hypertension, CKD stage 3, chronic degraded ulcers presented to the hospital with generalized weakness and wound check found to have 1. Sacral decubitus stage IV with some necrosis 2. Failure to thrive 3. Generalized weakness 4. Hypotension 5. CKD stage 3 -IV antibiotics, general surgery consultation, infectious disease consultation. Plan discussed with: Patient, Spouse My Orders Orders - MEGA JUAREZ MD Procedure Category Date Status Time Cleanse Wound With LACIE 03/21/25 In Process Wound Clean 11:51 Apply Z-Guard LACIE 03/21/25 In Process 11:51 * Dietary Consult CONS 03/21/25 Transmitted 18:16 Date of Service: Mar 22, 2025 Billing Provider: MEGA JUAREZ MD Common Visit Codes: NOT BILLABLE MEGA JUAREZ MD Mar 22, 2025 16:08
[2025-03-22] MEDS: HYDROcodone-ACET 5/325MG TAB PO PRN (16:34)
[2025-03-23 01:00] VITALS: BP 146/91; PULSE 95; RESP 18; TEMP 98.2; O2SAT 92
[2025-03-23 05:00] VITALS: BP 115/83; PULSE 63; RESP 18; TEMP 97.9; O2SAT 95
[2025-03-23 08:00] VITALS: PULSE 102; RESP 22; O2SAT 92
[2025-03-23 09:00] VITALS: BP 144/82; PULSE 102; RESP 22; TEMP 96.1; O2SAT 92
--- NOTE | 2025-03-23 10:35 | DVHPN2 ---
Progress Note - Dictate Date Seen: Mar 23, 2025 Medical Necessity Reason Pt with a Central, PICC or Fol: No Subjective Patient stable, tolerated wound care well. Surgery consulted. vital signs Vital Sign Date Time Temp Pulse Resp B/P (MAP) Pulse Ox O2 Delivery O2 Flow Rate FiO2 03/23/25 09:00 96.1 102 22 144/82 (102) 92 96.1 03/23/25 08:00 Room Air* 0 21 Total Intake and Output 03/22/25 03/22/25 03/22/25 02:30 10:30 18:30 Intake Total 400 ml 240 ml 2040 ml Output Total 200 ml 1000 ml Balance 400 ml 40 ml 1040 ml medications Current Medications Medications Dose Ordered Sig/Teena Route Start Time Stop Time Status Last Admin Dose Admin Acetaminophen/ Hydrocodone Bitart 1 tab Q4HP PRN PO 03/20/25 18:45 03/22/25 16:34 1 TAB Ondansetron HCl 4 mg Q4HP PRN IV 03/20/25 18:45 Docusate Sodium 100 mg BIDPRN PRN PO 03/20/25 18:45 Enoxaparin Sodium 40 mg DAILY SC 03/21/25 10:00 03/22/25 09:02 40 MG Zinc Sulfate 220 mg DAILY PO 03/21/25 10:00 03/22/25 09:02 220 MG Ascorbic Acid 500 mg BID PO 03/20/25 22:00 03/22/25 21:49 500 MG Multivitamins 1 tab DAILY PO 03/21/25 10:00 03/22/25 09:02 1 TAB Acetaminophen 650 mg Q6HP PRN PO 03/20/25 18:45 Morphine Sulfate 2 mg Q4HPRN PRN IV 03/20/25 18:45 Nitroglycerin 0.4 mg Q5MINP PRN SL 03/20/25 18:45 Morphine Sulfate 2 mg Q30M PRN IV 03/20/25 18:45 Piperacillin Sod/ Tazobactam Sod 100 ml @ 25 mls/hr Q8HR@0400,1200,2000 IV 03/21/25 04:00 03/23/25 04:25 25 MLS/HR Vancomycin HCl 0 ml @ 0 mls/hr UD IV 03/20/25 18:45 Vancomycin HCl 250 ml @ 250 mls/hr Q16H IV 03/21/25 16:00 03/23/25 01:09 250 MLS/HR objective General alert and confused, . thin appearing HEENT: Atraumatic Neck: No swelling Lungs: Equal air entry and clear to auscultation Cardiovascular: S2 heard no murmur Abdomen: Soft nontender, no organomegaly, nondistended Neuro: Alert and oriented, generalized weakness skin: stage iv decub ulcer a small up to 1-2 cm in size surrounding skin is dark and there is scarring laboratory and microbiology Laboratory Tests 03/22/25 12:50 03/22/25 10:25 03/22/25 06:20 Test 03/22/25 06:20 Range/Units Serum Glucose 117 H 74-106 mg/dL Assessment/Plan A 84 yo male with stage iv decub ulcer failure to thrive bed bound CKD stage III recommendations Clinically, he is afebrile, normal wbc and has no systemic signs of infection labs reviewed currently on IV Vancomycin and zosyn for now, monitor renal function fluids; ok to stop antibiotics and continue wound care CT abdomen and pelvis reviewed personally, no acute abnormality wound care consult nutrition consult surgery consult ; reviewed recommendation. recommended continue wound care MRI of hip did not show any evidence of osteomyelitis. prognosis gaurded due to bed bound / failure to thrive He needs to see wound center as outpatient for continued care. total time 50 minutes spent during the encounter thank you for consult Dietary Evaluation Review Comments: Encourage and monitor PO feedings Glucerna oral supplements 240 ml BID Expected Outcomes/Goals: gradual weight gain and healed wounds Plan discussed with: Other MARITA URENA MD Mar 23, 2025 10:35
[2025-03-23 12:44] VITALS: BP 147/92; PULSE 115; RESP 22; TEMP 97.5; O2SAT 97
--- NOTE | 2025-03-23 16:35 | DVHDS2 ---
Discharge Summary Date of Admission Mar 20, 2025 at 18:40 Date of Discharge: Mar 23, 2025 Labs/Diagnostic Data: Laboratory Results Test 03/23/25 10:55 03/22/25 23:59 03/22/25 12:50 03/22/25 10:25 Creatinine 1.01 mg/dL (0.700-1.30) Glomerular Filtration Rate Calc 73 mL/min (>90) Vancomycin Level Trough 12.0 ug/mL (5-10) Potassium Level 3.4 mmol/L (3.5-5.1) White Blood Count 9.8 10^3/uL (4.4-10.8) Red Blood Count 3.23 10^6/uL (4.5-5.90) Hemoglobin 10.2 g/dL (13.5-17.5) Hematocrit 30.6 % (41.0-53.0) Mean Corpuscular Volume 94.7 fL (80.0-100.0) Mean Corpuscular Hemoglobin 31.6 pg (28.0-32.0) Mean Corpuscular Hemoglobin Concent 33.3 g/dL (32.0-36.0) Red Cell Distribution Width 15.1 % (11.8-14.3) Platelet Count 808 10^3/uL (140-450) Mean Platelet Volume 7.6 fL (6.9-10.8) Neutrophils (%) (Auto) 77.1 % (37.0-80.0) Lymphocytes (%) (Auto) 11.8 % (10.0-50.0) Monocytes (%) (Auto) 8.7 % (0.0-12.0) Eosinophils (%) (Auto) 1.9 % (0.0-7.0) Basophils (%) (Auto) 0.5 % (0.0-2.0) Neutrophils # (Auto) 7.6 10 ^3/uL (1.6-8.6) Lymphocytes # (Auto) 1.2 10 ^3/uL (0.4-5.4) Monocytes # (Auto) 0.9 10 ^3/uL (0-1.3) Eosinophils # (Auto) 0.2 10 ^3/uL (0-0.8) Basophils # (Auto) 0 10 ^3/uL (0-0.2) Nucleated Red Blood Cells 0.0 % Platelet Estimate Markedly increased Test 03/22/25 06:20 03/20/25 15:03 Sodium Level 147 mmol/L (136-145) Chloride Level 113 mmol/L (98-107) Carbon Dioxide Level 15 mmol/L (20-31) Anion Gap 19 (5-15) Blood Urea Nitrogen 13 mg/dL (9-23) BUN/Creatinine Ratio 11.9 (10.0-20.0) Serum Glucose 117 mg/dL (74-106) Calcium Level 8.8 mg/dL (8.7-10.4) Total Bilirubin 0.2 mg/dL (0.2-1.0) Aspartate Amino Transferase (AST) 81 U/L (13-40) Alanine Aminotransferase (ALT) 22 U/L (7-40) Alkaline Phosphatase 69 U/L (46-116) Total Protein 6.8 g/dL (5.7-8.2) Albumin 3.6 g/dL (3.2-4.8) Lactic Acid Level 1.5 mmol/L (0.4-2.0) Other Laboratory Tests 03/23/25 10:55 03/22/25 12:50 03/22/25 10:25 03/22/25 06:20 Brief Hx & Hospital Course: 84-year-old male with a known history of hypertension, CKD stage 3, chronic degraded ulcers presented to the hospital with generalized weakness and wound check found to have sacral decubitus stage IV wound. Patient also has a failure to thrive. Patient was seen by Infectious Disease and General surgery. General surgery recommended only wound care no indication for surgery. Has been Infectious Disease no indication for antibiotics just wound care as an outpatient. 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 Condition at Discharge: Stable Final Diagnosis/Problems List 84-year-old male with a known history of hypertension, CKD stage 3, chronic degraded ulcers presented to the hospital with generalized weakness and wound check found to have 1. Sacral decubitus stage IV with some necrosis 2. Failure to thrive 3. Generalized weakness 4. Hypotension 5. CKD stage 3 Discharge Disposition: Home with Health Services SNF Discharge Will this Physician continue t: No Discharge Instruct/Medications Diet: Cardiac 2g Na,low cholest Activity: No Restrictions, As Tolerated Follow Up/Referral: Follow up with the PCP in one week Follow up with Wound Care Clinic 3 times a week Medications: Resume home medications Discharge Statement: "Patient was advised to return to the ER or call 911 if any headaches, dizziness, shortness of breath, chest pain, abdominal pain, bleeding, fevers, or worsening of medical condition. Patient was counseled about treatment plan, medications, possible side effects, patientverbalized understanding. All questions were answered to the best of my ability. This discharge took greater then 30 minutes in planning, reviewing documentation, counseling the patient, and discussing with other team members." ASSESSMENT ASSESSMENT Assessment 84-year-old male with a known history of hypertension, CKD stage 3, chronic degraded ulcers presented to the hospital with generalized weakness and wound check found to have 1. Sacral decubitus stage IV with some necrosis 2. Failure to thrive 3. Generalized weakness 4. Hypotension 5. CKD stage 3 Date of Service: Mar 23, 2025 Billing Provider: MEGA JUAREZ MD Common Visit Codes: NOT BILLABLE MEGA JUAREZ MD Mar 23, 2025 16:35
[2025-03-23 16:56] VITALS: BP 140/83; PULSE 61; RESP 20; TEMP 96.8; O2SAT 94
== END 2025-03-23 20:48 | disposition home health service (06) | DRG 592 ==
LOC: ER 13:49 → EDBD 13:49 → OVERFLOW 18:40 → WEST WING 23:03
PROVIDERS: ADMIT Internal Medicine; ATTEND Internal Medicine
DX: L89.154 Pressure ulcer of sacral region, stage 4 (principal); R53.2 Functional quadriplegia; R62.7 Adult failure to thrive; E87.6 Hypokalemia; I12.9 Hypertensive chronic kidney disease with stage 1 through stage 4 chronic kidney disease, or unspecified chronic kidney disease; N18.30 Chronic kidney disease, stage 3 unspecified; I95.9 Hypotension, unspecified; Z74.01 Bed confinement status; Z88.8 Allergy status to other drugs, medicaments and biological substances; Z68.28 Body mass index [BMI] 28.0-28.9, adult; Z79.899 Other long term (current) drug therapy; Z87.891 Personal history of nicotine dependence
CPT/HCPCS: 36415; 71045; 72195; 74176; 74181; 80048; 80053; 80202; 82565; 83605; 84132; 85025; 87040; 87077; 87081; 87186; 87205; 96365; 97110; 97163; G0378; J2543; J3480